=== PATIENT | female | born 1990 | race Caucasian/White ===

== ENCOUNTER 2023-09-14 19:09 | Inpatient (IN) | payer OTHER, SELFPAY ==
[2023-09-14] VITALS (35 sets, daily range): BP systolic 83–121; BP diastolic 45–71; PULSE 73–94; TEMP 36.7–37; O2SAT 92–100; BMI 25.8
[2023-09-14] MEDS: Penicillin G Pot 5,000,000 UNITS in 0.9% Normal Saline (100mL MB+) 100 ML 150 UNITS IV (19:38)
[2023-09-14] MEDS: Lactated Ringers 1,000 ML 200 ML IV (19:38)
[2023-09-14] MEDS: Betamethasone/Betamethasone 30 MG/5 ML Vial 12 MG IM (19:39)
--- NOTE | 2023-09-14 19:56 | HP.PCM.OB_ITS ---
HPI - General General Date of Admission: 09/14/23 HPI Narrative NATALYA LUJAN, is a 33 F @ 35.6 weeks who presents c/o contractions and possible SROM. pt has h/o delivery. pt reports is transfer of care from [facility] with GDMA1- well controlled. Pt offers no other concerns. PFSH PFSH Home Medications aspirin 81 mg capsule 81 mg PO DAILY AMA 09/14/23 [History Last Taken Unknown] levothyroxine 125 mcg tablet (Euthyrox) 125 mcg PO DAILY hashiomotos 09/14/23 [History Last Taken 09/14/23] vit no.95-ferrous fumarate 28 mg-folic acid 800 mcg tablet () 1 tab PO DAILY 09/14/23 [History Last Taken 09/14/23] Allergy/AdvReac Type Severity Reaction Status Date / Time No Known Allergies Allergy Verified 09/14/23 19:48 NST FHR Rate Baby A Baseline: 140 Variability:: Moderate Accelerations:: 15 x 15 Decelerations:: None NST Reactive:: Yes FHR Category:: Category I Uterine Activity:: Q4-6min Vital Signs Vital Signs Vital Signs: 09/14/23 19:25 09/14/23 19:25 09/14/23 19:32 Pulse Rate 82 Blood Pressure 106/71 BP Systolic 106 BP Diastolic 71 Pulse Ox 98 09/14/23 19:32 Pulse Rate 81 Blood Pressure BP Systolic BP Diastolic Pulse Ox Physical Exam Narrative limited bedside ultrasound: Vertex VE by nursin/50/-3 bulging membranes Const alert and oriented x3 General Appearance: cooperative HEENT normocephalic GI GI Narrative: Gravid, non tender to palpation. OB / External & Speculum: external exam normal Extremity normal to inspection Skin no rashes or lesions noted Neuro oriented x3 and CN's II-XII intact bilaterally Psych Appearance: grossly normal Labs Labs Labs: Blood Type Pending Antibody Screen Pending Hct Pending Hgb Pending Syphilis Total Ab Pending Group B Strep DNA Pending Assessment & Plan (1) Gestational diabetes: (2) AMA (advanced maternal age) multigravida 35+: (3) with care elsewhere: (4) LGA (large for gestational age) fetus: (5) labor in third trimester: (6) History of delivery, currently : (7) Thyroid disease affecting : PLAN: Plan Admit to L&D Monitor FHR/TOCO Epidural if requested for pain Monitor VS [place] reviewed with patient- accepted- BS well controlled Will not intervene at this time - unless starts to make active cervical change rapid GBS performed- will start PCN until results (previous +GBS, and currently 5cm) ROM PLUS sent for r/o SROM
[2023-09-14 19:59] LABS: Mucous, Urine 0 SEEN /hpf (<or=2+); Red Blood Cells-Urine 0 SEEN /hpf (0-5)
[2023-09-14 20:15] LABS: ROM Internal Control Test YES-OK TO RESULT pt. (Internal QC); Record Kit Lot#, ROM+ K1374
[2023-09-14 20:17] LABS: Color, Urine Straw (Yellow); Glucose, Dipstick Normal (Normal); Ketone-Dipstick Negative (Negative); Leukocyte Esterase-Dipstick 25 /ul (Negative); Nitrite-Dipstick Negative (Negative); Occult Blood-Urine Negative /ul (Negative); Protein-Dipstick Negative (Negative); Urine Bilirubin Dipstick Negative (Negative); Urine Clarity Clear (Clear); Urine Urobilinogen Normal (Normal)
[2023-09-14 20:20] LABS: ROM Patient Test Negative (Negative)
[2023-09-14 20:27] LABS: Bedside Glucose 87 mg/dL (74-106)
[2023-09-14 20:29] LABS: Absolute Lymphocyte Count 2.26 X10^3/uL (0.83-4.51); Absolute Neutrophil Count 6.3 X10^3/uL (2.0-7.7); Basophil# 0.05 X10^3/uL; Basophil% 0.5 % (0-1); Eosinophils% 1.1 % (0-5); Hematocrit 34.3 % (37-47); Lymphocyte # 2.26 X10^3/ul (0.83-4.51); Lymphocyte % 23.8 % (19-41); Mean Corpuscular Hgb 29.3 pg (27.0-32.0); Mean Corpuscular Volume 83.9 fL (81-99); Mean Platelet Vol. 10.2 fl (6.2-12.0); Monocyte# 0.69 X10^3/uL; Monocyte% 7.3 % (0-10); NRBC Flagged by Analyzer 0 % (0-5); Neutrophil # 6.34 X10^3/uL (2.7-7.7); Neutrophil % 66.9 % (47-70); Platelet Count 245 K/mm3 (150-450); RBC Distribution Width CV 13.5 % (11.6-14.6); RBC Distribution Width SD 41.3 fl (35.1-43.9); Red Blood Count 4.09 M/mm3 (4.2-5.4); White Blood Count 9.5 K/mm3 (4.4-11.0)
[2023-09-14] MEDS: LACTATED RINGERS 500 ML 999 ML IV ×2 (20:34→21:11)
[2023-09-14 20:36] LABS: Squamous Epithelial Cells - UA 0-5 SEEN /hpf (5-10); White Blood Cells 0-5 SEEN /hpf (0-5)
[2023-09-14 20:37] LABS: Bacteria RARE /hpf (None Seen)
--- NOTE | 2023-09-14 20:37 | PCM.PN.BLA ---
Progress Note pt examined at bedside- contractions getting more intense- VE: /0 Bulging membranes. Discussed with patient - in active labor. Discussed with patient Epidural and AROM. PCN infusing. Pt agreeable. AROM performed- Clear fluid.
[2023-09-14 20:44] LABS: Syphilis Antibodies Non-reactive
[2023-09-14] MEDS: fentaNYL-bupivacaine (epidural) 100 ML BAG EPIDURAL (21:08)
[2023-09-14 22:13] LABS: Hepatitis C Antibody Non-Reactive (Nonreactive)
[2023-09-14] MEDS: Penicillin G 3,000,000 Units 50 ML 100 UNITS IV (23:33)
[2023-09-14 23:37] LABS: Group B Strep DNA By PCR POSITIVE (Negative); Probe Check PASS
--- NOTE | 2023-09-14 23:55 | PCM.PN.BLA ---
Progress Note pt seen at beside- difficult time picking up contractions on external TOCO. IUPC placed. /. FHR reviewed Cat1, reactive. Pitocin for augmentation if indicated
[2023-09-14] MEDS: Oxytocin 15 Units/NS 250ml 15 UNITS/250 ML IV.SOLN 2 UNITS IV (23:56)
[2023-09-15] VITALS (40 sets, daily range): BP systolic 88–101; BP diastolic 40–58; PULSE 67–93; RESP 15–16; TEMP 36.4–37.2; O2SAT 97–99
[2023-09-15 00:26] LABS: Bedside Glucose 99 mg/dL (74-106)
[2023-09-15 00:26] LABS: Bedside Glucose 109 mg/dL (74-106)
[2023-09-15 01:33] LABS: Bedside Glucose 104 mg/dL (74-106)
[2023-09-15] MEDS: Lactated Ringers 1,000 ML 200 ML IV (02:04)
[2023-09-15] MEDS: fentaNYL-bupivacaine (epidural) 100 ML BAG EPIDURAL (02:04)
--- NOTE | 2023-09-15 03:50 | PLAC_PTH ---
PATIENT: NATALYA LUJAN LOC: [facility] U#:[id number] AGE/SX: 33/F ROOM: [facility] RE09/14/[address]: Dr. Ameena Ireland, MDDOB: 1990 BED: 1 DIS: 09/17/2023 SPEC #: [id number] RECD: 09/15/23 04:35 STATUS: CARRIE MAGUIRE #: [id number] CASH: 09/15/23 03:[address]: Ameena Ireland DEPT: SURGICAL PATHOLOGY RECD BY: Perlita Herbert ENTERED: 09/16/23 08:20 SP TYPE: PLACENTA OTHR DR: Mee Tipton, STRATEGIC PLANNING SPECIALIST-Emilee Tissues: Placenta, NOS Procedures: Surgery Specimen Level V HEADER OPERATION: Vaginal Delivery PRE-OP DIAGNOSIS: labor, diabetes TISSUE SUBMITTED: Placenta MICROSCOPIC DIAGNOSIS Stewart placenta (505 gm): Umbilical cord - trivascular with no inflammation. Placental membranes - mild chronic decidual inflammation. Placental disc - intervillous congestion, Yogesh-Scott change and mildly increased intraparenchymal fibrin plaques. AM:mirian 09/18/2023 MICROSCOPIC DESCRIPTION Slides are reviewed. GROSS DESCRIPTION SPECIMEN: PLACENTA / CLINICAL INFORMATION: A. Weight: 2.875 kg B. Gestational Age: 36 weeks C. Sex: Male PLACENTAL WEIGHT (POST FIXATION): 505 gm PLACENTAL DIMENSIONS: 16.0 x 16.0 x 3.5 cm PLACENTAL SHAPE: Usual ovoid PLACENTAL WEIGHT FOR GESTATIONAL AGE: Within 10-99th percentile MEMBRANES - Present A. Insertion: Marginal B. Site of rupture from edge: At margin of placental disc C. Color of membrane: Hernandez-tucker D. Abnormalities: None UMBILICAL CORD - Present A. Color: Hernandez-tucker B. Insertion: Paracentral C. Length: 47.0 cm D. Diameter: 1.5 E. Number of vessels: Three F. Abnormalities: None PLACENTAL DISC - Present A. Color of surface: Hernandez-tucker B. surface abnormalities: None C. Maternal cotyledons: Intact with minimal tears D. Attached retro placental clot: No clot E. Cut surface: Dark red and spongy F. Lesions: None G. Separate clot: Multiple fragments of blood clot weighing 42 gm and measuring in aggregate 7.0 x 6.0 x 3.0 cm. SECTIONS SUBMITTED: 1. Membrane roll 2. Cord, maternal end 3. Cord, end 4. Placental disc, and maternal surfaces 5. Placental disc, and maternal surfaces 6. Placental disc, and maternal surfaces SJ:mirian 09/17/2023 TC:5 CPT: 70719
--- NOTE | 2023-09-15 04:02 | EX.PCM.OBRPT ---
Vaginal Delivery Operative Information Date of Procedure: 09/15/23 Pre-Operative Diagnosis: 36 weeks labor, GDMA1, AMA, LGA, Thyroid disease in , care elsewhere Post-Operative Diagnosis: same Surgery / Procedure Performed: Spontaneous Vaginal Delivery Type of Anesthesia: Epidural Estimated Blood Loss: 50 Time of Delivery: 03:50 Findings Description of Procedure: Regressed to fully dilated. With good maternal pushing efforts she delivered the infant's head followed by the anterior shoulder and the rest the infant's body. Infant was placed on the mother's chest at time of delivery delayed cord clamping was performed. Infant was vigorous at time of delivery. Nursery staff was available to evaluate the . At this time Pitocin was started cord blood was obtained. The placenta was then delivered without complication and intact. First-degree perineal laceration was appreciated with a vaginal inclusion cyst noted at the previous laceration site. The vaginal inclusion cyst was ruptured. The first-degree laceration was repaired using 3-0 Rapide in a usual fashion without complication. Presentation: Vertex Amniotic Membrane Rupture Type: Artificial Amniotic Fluid Description: Clear Placental Delivery Description: Spontaneous Placenta Disposition: [facility] Specimen(s) Removed: Placenta Cord Vessel Description: 3 Vessels Cord Entanglement: None Infant A Gender: Male (1 minute): 8 (5 minute): 9 Delayed Cord Clamping: Yes Post Vaginal Delivery Medications Given After Delivery: IV Pitocin Episiotomy Description: None Laceration: Perineal Extension/lac and 1st degree Complication Complications: None
[2023-09-15] MEDS: Oxytocin 15 Units/NS 250ml 15 UNITS/250 ML IV.SOLN 83 UNITS IV (04:26)
[2023-09-15 04:30] LABS: Bedside Glucose 116 mg/dL (74-106)
[2023-09-15 04:30] LABS: Bedside Glucose 109 mg/dL (74-106)
[2023-09-15] MEDS: Levothyroxine 125 MCG Tablet 250 MCG PO (04:54)
[2023-09-15 04:57] LABS: Bedside Glucose 117 mg/dL (74-106)
[2023-09-15] MEDS: Ibuprofen 600 MG Tablet PO ×2 (10:43→18:22)
[2023-09-15] MEDS: Acetaminophen 500 MG Tablet 1000 MG PO ×2 (13:07→21:05)
[2023-09-16] MEDS: Ibuprofen 600 MG Tablet PO ×4 (00:50→21:41)
[2023-09-16] MEDS: Acetaminophen 500 MG Tablet 1000 MG PO ×3 (03:46→18:46)
[2023-09-16 03:50] VITALS: BP 94/49; PULSE 57; RESP 15; TEMP 36.4; O2SAT 96
[2023-09-16] MEDS: Levothyroxine 125 MCG Tablet PO (06:28)
[2023-09-16 06:40] LABS: Bedside Glucose 103 mg/dL (74-106)
[2023-09-16 07:35] VITALS: BP 94/55; PULSE 63; RESP 16; TEMP 36.3; O2SAT 97
--- NOTE | 2023-09-16 08:56 | PCM.PN.OB ---
Subjective Subjective pain well controlled, averge lochia Objective Data Objective Data Vital Signs: Vital Signs Temp Pulse Resp BP Pulse Ox O2 Del Method 97.3 F L 63 16 94/55 L 97 Room Air 09/16/23 07:35 09/16/23 07:35 09/16/23 07:35 09/16/23 07:35 09/16/23 07:35 09/16/23 07:35 Oxygen Delivery Method Room Air Weight: 66.2 kg Body Mass Index (BMI) 25.8 Intake & Output: Intake and Output for Last 24 Hours 09/14/23 09/15/23 09/16/23 23:59 23:59 23:59 Intake Total 1291.67 / 1291.67 1917.72 / 1917.72 Output Total 625 / 625 2150 / 2150 Balance 666.67 / 666.67 -232.28 / -232.28 Lab / Micro Data 09/14/23 19:30 Labs: Laboratory Results - last 24 hr 09/16/23 06:21: POC Glucose 103 Physical Exam Const alert and no apparent distress Narrative: Fundus firm, below umbilicus. Assessment & Plan (1) (spontaneous vaginal delivery): PLAN: PPD#1 s/p . Doing well. D/c home tomorrow
[2023-09-16 15:30] VITALS: BP 106/68; PULSE 78; RESP 16; TEMP 36.4; O2SAT 100
[2023-09-16 20:38] VITALS: BP 99/60; PULSE 77; RESP 16; TEMP 36.4; O2SAT 99
[2023-09-17 02:00] VITALS: BP 87/46; PULSE 61; RESP 17; TEMP 36.2; O2SAT 96
[2023-09-17] MEDS: Acetaminophen 500 MG Tablet 1000 MG PO (03:44)
[2023-09-17] MEDS: Levothyroxine 125 MCG Tablet PO (05:47)
--- NOTE | 2023-09-17 09:01 | PCM.PN.OB ---
Subjective Subjective Doing well per patient and nursing staff. Ambulating and taking PO without difficulty. Voiding and passing flatus. Pain controlled. , services for assistance. Denies headache, visual changes, chest pain, shortness of breath, leg pain or increased bleeding. Lochia normal. Objective Data Objective Data Vital Signs: Vital Signs Temp Pulse Resp BP Pulse Ox O2 Del Method 97.1 F L 61 17 87/46 L 96 Room Air 09/17/23 02:00 09/17/23 02:00 09/17/23 02:00 09/17/23 02:00 09/17/23 02:00 09/17/23 02:00 Oxygen Delivery Method Room Air Weight: 145 lb 15.136 oz Body Mass Index (BMI) 25.8 Intake & Output: Intake and Output for Last 24 Hours 09/15/23 09/16/23 09/17/23 23:59 23:59 23:59 Intake Total 1917.72 / 1917.72 Output Total 2150 / 2150 Balance -232.28 / -232.28 Lab / Micro Data 09/14/23 19:30 ROS Constitutional Constitutional: Reports systems reviewed and no addt'l complaints, except as documented; Denies headache(s) Eyes Eyes: Denies acute decrease in peripheral vision, blurry vision or change in vision ENT HEENT: Reports systems reviewed and no addt'l complaints, except as documented Cardiovascular Cardiovascular: Denies chest pain or dizziness Respiratory/Chest Respiratory/Chest: Denies cough, dyspnea, dyspnea on exertion, shortness of breath at rest or shortness of breath with exertion Gastrointestinal Gastrointestinal: Denies abdominal pain, diarrhea, nausea or vomiting Genitourinary Genitourinary: Denies abdominal discomfort Musculoskeletal Musculoskeletal: Denies limited range of motion Integumentary Integumentary: Reports systems reviewed and no addt'l complaints, except as documented Neurologic Neurologic: Reports systems reviewed and no addt'l complaints, except as documented Psychiatric Psychiatric: Reports systems reviewed and no addt'l complaints, except as documented Endocrine Endocrinology: Reports systems reviewed and no addt'l complaints, except as documented Hematologic/Lymphatic Hematologic/Lymphatic: Reports systems reviewed and no addt'l complaints, except as documented Allergic/Immunologic Allergic/Immunologic: Reports systems reviewed and no addt'l complaints, except as documented Physical Exam Const alert and oriented x3 General Appearance: cooperative Orientation / Consciousness: awake, oriented to person, oriented to place and oriented to time Exam Limitations: no limitations HEENT normocephalic Head and Scalp: normal to inspection, normocephalic and atraumatic Face and Sinus: normal facial exam Eyes General Eye: normal appearance of both eyes Neck full ROM Chest Chest: symmetrical chest wall rise Resp normal respiratory effort and normal air movement Auscultation: clear to auscultation bilaterally Cardio regular rate, regular rhythm, S1 normal heart sound, S2 normal heart sound, no murmurs, no rub, no gallops and no clicks GI normal to inspection, nondistended, normoactive bowel sounds and non-tender appearance of the vagina normal Bladder / Kidney Exam: no CVA tenderness Back/Spine normal ROM Extremity normal to inspection and full ROM Skin no rashes or lesions noted Neuro oriented x3 and moves all extremities Sensorium / Orientation: awake, alert and oriented to person Assessment & Plan (1) (spontaneous vaginal delivery): (2) Gestational diabetes: PLAN: Plan 1) Routine PP care 2) Pain management 3) Vitals stable 4) Follow up in 2 weeks and 6 weeks PP 5) D/C home today
--- NOTE | 2023-09-17 09:03 | DS.PCM_ITS ---
Providers Date of Admission: 09/14/23 Date of Discharge: 09/17/23 Primary Care Physician: Mee Tipton, KRYSTYNA-C Reason For Visit: VAGINAL DELIVERY Diagnosis Discharge Diagnosis (1) (spontaneous vaginal delivery): Status: Acute Code(s): O80 - Encounter for full-term uncomplicated delivery (2) Gestational diabetes: Status: Acute Code(s): O24.419 - Gestational diabetes mellitus in , unspecified control Plan 1) Routine PP care 2) Pain management 3) Vitals stable 4) Follow up in 2 weeks and 6 weeks PP 5) D/C home today Medications at Discharge Home Medications levothyroxine 125 mcg tablet (Euthyrox) 125 mcg PO DAILY hashiomotos 09/14/23 vit no.95-ferrous fumarate 28 mg-folic acid 800 mcg tablet () 1 tab PO DAILY 09/14/23 acetaminophen 500 mg tablet 1,000 mg (2 x 500 mg) PO Q6H PRN PRN Pain 1-10 Or Fever #0 tabs 09/17/23 ibuprofen 600 mg tablet 600 mg PO Q6H PRN PRN Pain Score 1-10 #0 tabs 09/17/23 Weight / BMI Weight Weight: 145 lb 15.136 oz Body Mass Index (BMI) 25.8 ABG / Lab / Microbiology Data 09/14/23 19:30 D/C Instructions Discharge Diet: No restrictions Discharge Activity: Return to Normal Activity, May Drive, May Shower and May Take a Tub Bath May resume sexual activity in: 6 weeks Weight Bearing Status: Full weight bearing Call your doctor if you observe: Fever of 101 or Higher, Inability to urinate, Inability to have a bowel movement, Using more than 1 pad per hour, Shortness of breath, Chest pain, Increased palpitations (irregular heartbeat), Calf discomfort and Uncontrolled pain When: Follow up with [facility] in 2 weeks for virtual visit and 6 weeks for PP visit Meaningful Use Info Meaningful Use Diagnoses (Choose all that apply): None applicable Discharge Plan Admission Admit Date/Time: 09/14/23 19:09 Primary Reason for Your Visit: Vaginal Delivery Attending Provider: Ameena Ireland Primary Care Provider: Mee Tipton MEDICAL SERVICE REPRESENTATIVE Discharge Orders/Prescriptions Prescriptions: New acetaminophen 500 mg Tablet 1,000 mg PO Q6H PRN PRN (Reason: Pain 1-10 Or Fever) Qty: 0 0RF ibuprofen 600 mg Tablet 600 mg PO Q6H PRN PRN (Reason: Pain Score 1-10) Qty: 0 0RF Continued levothyroxine [Euthyrox] 125 mcg tablet 125 mcg PO DAILY Patient Comments: takes 125 mcg saturday-sundays she takes 250mcg PNV cmb#95-ferrous fumarate-FA [] 28 mg iron- 800 mcg tablet 1 tab PO DAILY Discontinued aspirin 81 mg capsule 81 mg PO DAILY Referrals / Follow Up: Mee Tipton MEDICAL SERVICE REPRESENTATIVE, MEDICAL SERVICE REPRESENTATIVE-C [Primary Care Provider] - Disposition Disposition (needs filled in before D/C Order can be placed): Home, Self Care
[2023-09-17 09:15] VITALS: BP 96/52; PULSE 75; RESP 16; TEMP 36.5; O2SAT 95
[2023-09-17] MEDS: Ibuprofen 600 MG Tablet PO (10:16)
[2023-09-17 10:43] VITALS: BP 96/52; PULSE 75; RESP 16; TEMP 36.5; O2SAT 95
[2023-09-18 14:05] LABS: Pathology Specimen OB SEE PATHOLOGY REPORT
== END 2023-09-17 11:15 | disposition home or self-care (01) | DRG 807 ==
LOC: WPOUT 19:10 → WP 19:10
PROVIDERS: Admitting Provider Obstetrics & Gynecology; PCP Nurse Practitioner Family; Visit Provider Obstetrics & Gynecology
DX: O60.14X0 Preterm labor third trimester with preterm delivery third trimester, not applicable or unspecified (principal); Z37.0 Single live birth; O24.429 Gestational diabetes mellitus in childbirth, unspecified control; E07.9 Disorder of thyroid, unspecified; L72.0 Epidermal cyst; O99.72 Diseases of the skin and subcutaneous tissue complicating childbirth; O70.0 First degree perineal laceration during delivery; Z79.82 Long term (current) use of aspirin; O99.284 Endocrine, nutritional and metabolic diseases complicating childbirth; O36.63X0 Maternal care for excessive fetal growth, third trimester, not applicable or unspecified; Z3A.35 35 weeks gestation of pregnancy; Z79.890 Hormone replacement therapy
CPT/HCPCS: 59025; 59050; 76815; 81001; 82962; 84112; 85025; 86780; 86803; 86850; 86900; 86901; 87653; 88307; 99221; J7120; G0378; J0702